=== PATIENT | male | born 1985 | race Caucasian/White ===

== ENCOUNTER 2017-12-20 20:28 | Emergency (ER) | payer SELFPAY ==
[~2017-12-20] VITALS: Ht 180.3 cm; Wt 85.7 kg
[2017-12-20 20:33] VITALS: BP 140/102
== END 2017-12-20 21:01 | disposition home or self-care (01) ==
LOC: ED 20:59
DX: K04.7 Periapical abscess without sinus (principal)
CPT/HCPCS: 99283